=== PATIENT | male | born 1930 | race Caucasian/White ===

== ENCOUNTER 2016-12-22 16:03 | Inpatient (IN) | payer OTHER ==
[~2016-12-22] VITALS: Ht 165.1 cm; Wt 60.2 kg
[~2016-12-22 16:03] MED LIST: AMLODIPINE BESY10 MG PO; AMOX TR-K CLV1 EAC4 PO; ASPIRIN81 M2 PO; AUGMENTIN875 MG PO; CALCIUM 500 MG1 EACH PO; CENTRUM SILVER1 EAC1 PO; COUMADIN1 MG PO; COUMADIN2.5 MG PO; DOCUSATE SODIU100 MG PO; FISH OIL300 MG PO; FLOMAX0.4 MG PO; LEVETIRACETAM500 MG PO; LIPITOR40 MG PO; LOVENOX60 MG/0.6 SC
[2016-12-22 16:31] LABS: EOSINOPHIL (%) 7.6 % (0-5); EOSINOPHIL COUNT 0.5 K/uL (0-0.3); HEMATOCRIT 28.3 % (38.0-50.0); IMMATURE GRANULOCYTE (%) 0.1 % (0.0-0.7); INSTRUMENT ABS NEUTROPHIL CT 3.7 K/uL; LYMPHOCYTE COUNT 1.8 K/uL (1.0-2.8); MCHC 34.6 G/DL (30.0-36.0); MCV 101.1 FL (86-99); MONOCYTE (%) 10.7 % (3-12); MONOCYTE COUNT 0.7 K/uL (0-0.8); NEUTROPHIL (%) 54.7 % (45-76); NEUTROPHIL COUNT 3.7 K/uL (1.8-6.4); PLATELET COUNT 300 K/uL (156-360); RBC DIS.WIDTH-CV 12.4 % (11.8-14.6); RBC DIS.WIDTH-SD 46.1 % (39-53); WHITE BLOOD COUNT 6.8 K/uL (4.1-10.2)
[2016-12-22 16:40] LABS: CHLORIDE 107 mEq/L (99-109); POTASSIUM 4.9 mEq/L (3.7-5.4); SODIUM 140 mEq/L (136-147)
[2016-12-22 16:42] LABS: GLUCOSE 113 mg/dL (70-99)
[2016-12-22 16:44] LABS: ANION GAP 9 MEQ/L (2-14); TOTAL BILIRUBIN 0.3 mg/dL (0.0-1.0)
[2016-12-22 16:46] LABS: ALKALINE PHOSPHATASE 81 IU/L (3-129); GFR ESTIMATE (CALCULATED) 44 mL/min/
[2016-12-22 16:47] LABS: UREA NITROGEN (BUN) 30 mg/dL (9-23)
[2016-12-22 16:49] LABS: LIPASE 990 U/L (1.0-51.0)
[2016-12-22 17:42] LABS: ADD MIUA? NO; BILIRUBIN NEGATIVE; BLOOD NEGATIVE; COLOR YELLOW ((YELLOW)); GLUCOSE (STRIP) NEGATIVE; KETONES NEGATIVE; LEUKOCYTES NEGATIVE; NITRITE NEGATIVE; PROTEIN (STRIP) 30; UCUL ADDED? NO; UROBILINOGEN 0.2 MG/DL (0.2-1.0)
[2016-12-22] MEDS ORDERED: ZYRTEC10 M3 PO (18:29)
[2016-12-22] MEDS ORDERED: NORVASC10 MG PO (18:30)
[2016-12-22 23:04] VITALS: BP 133/60
[2016-12-23 01:45] LABS: C-REACTIVE PROTEIN 4.9 MG/L (0-10); TRIGLYCERIDES 59 MG/DL (Normal: <150)
[2016-12-23 07:08] LABS: BASOPHIL COUNT 0.1 K/uL (0-0.1); EOSINOPHIL (%) 7.1 % (0-5); EOSINOPHIL COUNT 0.4 K/uL (0-0.3); HEMATOCRIT 30.8 % (38.0-50.0); IMMATURE GRANULOCYTE (%) 0.3 % (0.0-0.7); INSTRUMENT ABS NEUTROPHIL CT 3.5 K/uL; LYMPHOCYTE COUNT 1.2 K/uL (1.0-2.8); MCH 33.8 PG (29.0-34.0); MCHC 33.1 G/DL (30.0-36.0); MEAN PLAT.VOLUME 10.1 uM^3 (9.0-12.4); MONOCYTE (%) 10.1 % (3-12); MONOCYTE COUNT 0.6 K/uL (0-0.8); NEUTROPHIL (%) 60.9 % (45-76); NEUTROPHIL COUNT 3.5 K/uL (1.8-6.4); PLATELET COUNT 243 K/uL (156-360); RBC DIS.WIDTH-CV 12.7 % (11.8-14.6); RBC DIS.WIDTH-SD 47.1 % (39-53); RED BLOOD COUNT 3.02 M/uL (4.00-5.50); WHITE BLOOD COUNT 5.8 K/uL (4.1-10.2)
[2016-12-23 07:23] VITALS: BP 105/61
[2016-12-23 07:28] LABS: ALKALINE PHOSPHATASE 69 IU/L (3-129); ANION GAP 8 MEQ/L (2-14); CHLORIDE 108 MEQ/L (99-109); GFR ESTIMATE (CALCULATED) 56 mL/min/; GLUCOSE 107 mg/dL (70-99); LIPASE 25 U/L (1.0-51.0); POTASSIUM 4.6 MEQ/L (3.7-5.4); SAMPLE HEMOLYSIS CHECK 0; SAMPLE ICTERIC CHECK 0; SAMPLE LIPEMIA CHECK 0; SODIUM 141 MEQ/L (136-147); TOTAL BILIRUBIN 0.5 MG/DL (0.0-1.0); UREA NITROGEN (BUN) 24 mg/dL (9-23)
[2016-12-23 15:44] VITALS: BP 136/81
[2016-12-24 02:35] VITALS: BP 144/64
[2016-12-24 08:02] VITALS: BP 127/60
[2016-12-24 09:37] LABS: HEMATOCRIT 34.3 % (38.0-50.0); MCH 34.4 PG (29.0-34.0); MCHC 33.8 G/DL (30.0-36.0); MCV 101.8 FL (86-99); MEAN PLAT.VOLUME 10.1 uM^3 (9.0-12.4); PLATELET COUNT 249 K/uL (156-360); RBC DIS.WIDTH-CV 12.7 % (11.8-14.6); RED BLOOD COUNT 3.37 M/uL (4.00-5.50); WHITE BLOOD COUNT 7.4 K/uL (4.1-10.2)
[2016-12-24 10:09] LABS: ALKALINE PHOSPHATASE 80 IU/L (3-129); ANION GAP 9 MEQ/L (2-14); CHLORIDE 108 MEQ/L (99-109); GFR ESTIMATE (CALCULATED) 51 mL/min/; GLUCOSE 119 mg/dL (70-99); LIPASE 17 U/L (1.0-51.0); POTASSIUM 4.5 MEQ/L (3.7-5.4); SAMPLE HEMOLYSIS CHECK 0; SAMPLE ICTERIC CHECK 0; SAMPLE LIPEMIA CHECK 0; SODIUM 143 MEQ/L (136-147); TOTAL BILIRUBIN 0.6 MG/DL (0.0-1.0); UREA NITROGEN (BUN) 23 mg/dL (9-23)
[2016-12-24 15:57] VITALS: BP 179/99
[2016-12-25 00:39] VITALS: BP 147/77
[2016-12-25 07:13] LABS: ALKALINE PHOSPHATASE 72 IU/L (3-129); ANION GAP 13 MEQ/L (2-14); CHLORIDE 107 MEQ/L (99-109); GFR ESTIMATE (CALCULATED) 47 mL/min/; GLUCOSE 122 mg/dL (70-99); POTASSIUM 4.1 MEQ/L (3.7-5.4); SAMPLE HEMOLYSIS CHECK 0; SAMPLE ICTERIC CHECK 0; SAMPLE LIPEMIA CHECK 0; SODIUM 144 MEQ/L (136-147); TOTAL BILIRUBIN 0.7 MG/DL (0.0-1.0); UREA NITROGEN (BUN) 24 mg/dL (9-23)
[2016-12-25 07:34] VITALS: BP 150/79
[2016-12-25 07:47] LABS: HEMATOCRIT 36.7 % (38.0-50.0); MCH 33.4 PG (29.0-34.0); MCHC 32.7 G/DL (30.0-36.0); MCV 102.2 FL (86-99); MEAN PLAT.VOLUME 10.5 uM^3 (9.0-12.4); PLATELET COUNT 269 K/uL (156-360); RBC DIS.WIDTH-CV 12.4 % (11.8-14.6); RBC DIS.WIDTH-SD 46.5 % (39-53); RED BLOOD COUNT 3.59 M/uL (4.00-5.50); WHITE BLOOD COUNT 7.5 K/uL (4.1-10.2)
[2016-12-25 14:50] VITALS: BP 135/79
[2016-12-25 23:43] VITALS: BP 143/86
[2016-12-26 06:38] LABS: BASOPHIL COUNT 0.1 K/uL (0-0.1); EOSINOPHIL (%) 5.9 % (0-5); EOSINOPHIL COUNT 0.5 K/uL (0-0.3); HEMATOCRIT 35.8 % (38.0-50.0); IMMATURE GRANULOCYTE (%) 0.3 % (0.0-0.7); INSTRUMENT ABS NEUTROPHIL CT 4.9 K/uL; LYMPHOCYTE COUNT 1.7 K/uL (1.0-2.8); MCH 33.6 PG (29.0-34.0); MCHC 32.1 G/DL (30.0-36.0); MCV 104.7 FL (86-99); MEAN PLAT.VOLUME 10.8 uM^3 (9.0-12.4); MONOCYTE COUNT 0.8 K/uL (0-0.8); NEUTROPHIL (%) 61.6 % (45-76); NEUTROPHIL COUNT 4.9 K/uL (1.8-6.4); PLATELET COUNT 276 K/uL (156-360); RBC DIS.WIDTH-CV 12.9 % (11.8-14.6); RBC DIS.WIDTH-SD 49.4 % (39-53); RED BLOOD COUNT 3.42 M/uL (4.00-5.50)
[2016-12-26 07:26] LABS: ALKALINE PHOSPHATASE 74 IU/L (3-129); ANION GAP 11 MEQ/L (2-14); CHLORIDE 110 MEQ/L (99-109); GFR ESTIMATE (CALCULATED) 44 mL/min/; GLUCOSE 110 mg/dL (70-99); LIPASE 24 U/L (1.0-51.0); SAMPLE HEMOLYSIS CHECK 0; SAMPLE ICTERIC CHECK 0; SAMPLE LIPEMIA CHECK 0; SODIUM 147 MEQ/L (136-147); TOTAL BILIRUBIN 0.6 MG/DL (0.0-1.0); UREA NITROGEN (BUN) 29 mg/dL (9-23)
[2016-12-26 07:54] VITALS: BP 140/62
[2016-12-26 15:49] VITALS: BP 148/82
[2016-12-26 22:49] VITALS: BP 138/82
[2016-12-27 06:42] LABS: ANION GAP 10 MEQ/L (2-14); CHLORIDE 108 MEQ/L (99-109); GFR ESTIMATE (CALCULATED) 44 mL/min/; GLUCOSE 122 mg/dL (70-99); POTASSIUM 3.7 MEQ/L (3.7-5.4); SAMPLE HEMOLYSIS CHECK 0; SAMPLE ICTERIC CHECK 0; SAMPLE LIPEMIA CHECK 0; SODIUM 143 MEQ/L (136-147); UREA NITROGEN (BUN) 26 mg/dL (9-23)
[2016-12-27 06:50] VITALS: BP 116/59
[2016-12-27 15:37] VITALS: BP 123/67
[2016-12-27 23:35] VITALS: BP 129/69
[2016-12-28 07:06] VITALS: BP 139/63
[2016-12-28] MEDS ORDERED: ZIPRASIDONE HCL20 MG PO (14:01)
== END 2016-12-28 16:10 | DRG 438 ==
LOC: EME → EDBD 16:03 → EME 16:03 → 5EAST 20:20 → EDOF 20:20 → 5EAST 22:50
PROVIDERS: Emergency Medicine; Hospitalist; Internal Medicine; Internal Medicine Gastroenterology
DX: K85.90 Acute pancreatitis without necrosis or infection, unspecified (principal); K83.1 Obstruction of bile duct; G93.40 Encephalopathy, unspecified; N17.9 Acute kidney failure, unspecified; E86.0 Dehydration; K83.8 Other specified diseases of biliary tract; I12.9 Hypertensive chronic kidney disease with stage 1 through stage 4 chronic kidney disease, or unspecified chronic kidney disease; N18.9 Chronic kidney disease, unspecified; D64.9 Anemia, unspecified; Z66 Do not resuscitate; Z51.5 Encounter for palliative care; Q63.1 Lobulated, fused and horseshoe kidney; Z23 Encounter for immunization; Z85.038 Personal history of other malignant neoplasm of large intestine; Z87.891 Personal history of nicotine dependence; Z86.718 Personal history of other venous thrombosis and embolism; I69.322 Dysarthria following cerebral infarction
CPT/HCPCS: 71010; 74176; 74181; 76705; 80048; 80053; 81003; 83605; 83690; 84478; 85025; 85027; 86140; 92610 GN; 99281; 99285; C9113; G0008; J1630; J1644; J2270; J3010; J7030; J7120

== ENCOUNTER 2017-02-01 15:01 | Inpatient (IN) | payer OTHER ==
[~2017-02-01] VITALS: Ht 167.6 cm; Wt 56.0 kg
[~2017-02-01 15:01] MED LIST changes: +NORVASC10 MG PO; +ZIPRASIDONE HCL20 MG PO; +ZYRTEC10 M3 PO
[2017-02-01 15:42] LABS: EOSINOPHIL (%) 0.5 % (0-5); HEMATOCRIT 32.1 % (38.0-50.0); IMMATURE GRANULOCYTE (%) 0.3 % (0.0-0.7); LYMPHOCYTE COUNT 0.5 K/uL (1.0-2.8); MCH 34.1 PG (29.0-34.0); MCHC 33.3 G/DL (30.0-36.0); MCV 102.2 FL (86-99); MEAN PLAT.VOLUME 9.8 uM^3 (9.0-12.4); MONOCYTE (%) 10.5 % (3-12); MONOCYTE COUNT 0.8 K/uL (0-0.8); NEUTROPHIL (%) 81.9 % (45-76); PLATELET COUNT 216 K/uL (156-360); RBC DIS.WIDTH-CV 13.1 % (11.8-14.6); RBC DIS.WIDTH-SD 49.3 % (39-53); RED BLOOD COUNT 3.14 M/uL (4.00-5.50); WHITE BLOOD COUNT 7.3 K/uL (4.1-10.2)
[2017-02-01 15:57] LABS: CHLORIDE 106 mEq/L (99-109); POTASSIUM 4.5 mEq/L (3.7-5.4); SODIUM 140 mEq/L (136-147)
[2017-02-01 15:59] LABS: GLUCOSE 154 mg/dL (70-99)
[2017-02-01 16:00] LABS: ANION GAP 10 MEQ/L (2-14)
[2017-02-01 16:01] LABS: TOTAL BILIRUBIN 0.5 mg/dL (0.0-1.0)
[2017-02-01 16:02] LABS: ALKALINE PHOSPHATASE 67 IU/L (3-129)
[2017-02-01 16:03] LABS: GFR ESTIMATE (CALCULATED) 41 mL/min/
[2017-02-01 16:04] LABS: DIRECT BILIRUBIN 0.2 mg/dL (0.0-0.3); UREA NITROGEN (BUN) 25 mg/dL (9-23)
[2017-02-01 16:07] LABS: INFLUENZA A VIRAL ANTIGEN POSITIVE; INFLUENZA B VIRAL ANTIGEN NEGATIVE
[2017-02-01 16:47] LABS: ADD MIUA? YES; BILIRUBIN NEGATIVE; BLOOD SMALL; COLOR YELLOW ((YELLOW)); GLUCOSE (STRIP) NEGATIVE; KETONES NEGATIVE; LEUKOCYTES NEGATIVE; NITRITE NEGATIVE; PROTEIN (STRIP) 100; SPECIFIC GRAVITY 1.017 (1.000-1.030); UROBILINOGEN 0.2 MG/DL (0.2-1.0)
[2017-02-01 17:09] LABS: BACTERIA RARE /HPF; EPITHELIAL CELLS RARE /HPF; MUCUS TRACE /LPF; UCUL ADDED? NO; WHITE BLOOD CELLS 0-5 /HPF (0-5)
[2017-02-01] MEDS ORDERED: LIPITOR10 MG PO (18:40)
[2017-02-01] MEDS ORDERED: CAL MAG ZINC +1 EACH PO (18:41)
[2017-02-01] MEDS ORDERED: AMOXICILLIN875 MG PO (18:42)
[2017-02-01] MEDS ORDERED: ROBITUSSIN DM118 ML PO (18:43)
[2017-02-01] MEDS ORDERED: FISH OIL 1,0001 EAC7 PO (18:43)
[2017-02-01 23:13] VITALS: BP 142/68
[2017-02-02 04:00] VITALS: BP 140/58
[2017-02-02 06:50] LABS: EOSINOPHIL (%) 0.6 % (0-5); HEMATOCRIT 31.1 % (38.0-50.0); IMMATURE GRANULOCYTE (%) 0.4 % (0.0-0.7); INSTRUMENT ABS NEUTROPHIL CT 5.6 K/uL; LYMPHOCYTE COUNT 0.6 K/uL (1.0-2.8); MCH 34.6 PG (29.0-34.0); MCHC 33.4 G/DL (30.0-36.0); MCV 103.3 FL (86-99); MEAN PLAT.VOLUME 10.3 uM^3 (9.0-12.4); MONOCYTE (%) 9.8 % (3-12); MONOCYTE COUNT 0.7 K/uL (0-0.8); NEUTROPHIL (%) 80.7 % (45-76); NEUTROPHIL COUNT 5.6 K/uL (1.8-6.4); PLATELET COUNT 197 K/uL (156-360); RBC DIS.WIDTH-SD 48.8 % (39-53); RED BLOOD COUNT 3.01 M/uL (4.00-5.50); WHITE BLOOD COUNT 6.9 K/uL (4.1-10.2)
[2017-02-02 07:10] LABS: ALKALINE PHOSPHATASE 53 IU/L (3-129); ANION GAP 6 MEQ/L (2-14); CHLORIDE 103 MEQ/L (99-109); GFR ESTIMATE (CALCULATED) 56 mL/min/; POTASSIUM 4.1 MEQ/L (3.7-5.4); SAMPLE HEMOLYSIS CHECK 0; SAMPLE ICTERIC CHECK 0; SAMPLE LIPEMIA CHECK 0; SODIUM 138 MEQ/L (136-147); TOTAL BILIRUBIN 0.5 MG/DL (0.0-1.0); UREA NITROGEN (BUN) 21 mg/dL (9-23)
[2017-02-02 07:14] LABS: GLUCOSE 114 mg/dL (70-99)
[2017-02-02 07:31] VITALS: BP 132/65
[2017-02-02 11:16] VITALS: BP 130/62
[2017-02-02 15:26] VITALS: BP 117/53
[2017-02-02 20:00] VITALS: BP 152/76
[2017-02-02 23:42] VITALS: BP 134/65
[2017-02-03 04:00] VITALS: BP 134/65
[2017-02-03 06:56] LABS: EOSINOPHIL COUNT 0.1 K/uL (0-0.3); HEMATOCRIT 28.7 % (38.0-50.0); IMMATURE GRANULOCYTE (%) 0.2 % (0.0-0.7); INSTRUMENT ABS NEUTROPHIL CT 3.9 K/uL; LYMPHOCYTE COUNT 0.8 K/uL (1.0-2.8); MCH 33.9 PG (29.0-34.0); MCHC 33.1 G/DL (30.0-36.0); MCV 102.5 FL (86-99); MEAN PLAT.VOLUME 10.8 uM^3 (9.0-12.4); MONOCYTE (%) 12.5 % (3-12); MONOCYTE COUNT 0.7 K/uL (0-0.8); NEUTROPHIL (%) 71.5 % (45-76); NEUTROPHIL COUNT 3.9 K/uL (1.8-6.4); PLATELET COUNT 185 K/uL (156-360); RBC DIS.WIDTH-CV 12.8 % (11.8-14.6); RBC DIS.WIDTH-SD 48.3 % (39-53); WHITE BLOOD COUNT 5.5 K/uL (4.1-10.2)
[2017-02-03 08:43] LABS: CHLORIDE 106 mEq/L (99-109); SODIUM 140 mEq/L (136-147)
[2017-02-03 08:45] LABS: GLUCOSE 97 mg/dL (70-99)
[2017-02-03 08:47] VITALS: BP 136/80
[2017-02-03 08:47] LABS: ANION GAP 9 MEQ/L (2-14)
[2017-02-03 08:49] LABS: GFR ESTIMATE (CALCULATED) > 59 mL/min/
[2017-02-03 08:50] LABS: UREA NITROGEN (BUN) 22 mg/dL (9-23)
[2017-02-03 11:40] VITALS: BP 129/71
[2017-02-03 16:33] VITALS: BP 132/65
[2017-02-04 08:56] VITALS: BP 134/67
[2017-02-04 11:05] LABS: EOSINOPHIL (%) 5.5 % (0-5); EOSINOPHIL COUNT 0.3 K/uL (0-0.3); HEMATOCRIT 28.2 % (38.0-50.0); IMMATURE GRANULOCYTE (%) 0.2 % (0.0-0.7); INSTRUMENT ABS NEUTROPHIL CT 3.3 K/uL; LYMPHOCYTE COUNT 0.7 K/uL (1.0-2.8); MCH 34.5 PG (29.0-34.0); MCHC 33.7 G/DL (30.0-36.0); MCV 102.5 FL (86-99); MEAN PLAT.VOLUME 10.4 uM^3 (9.0-12.4); MONOCYTE (%) 10.8 % (3-12); MONOCYTE COUNT 0.5 K/uL (0-0.8); NEUTROPHIL (%) 68.2 % (45-76); NEUTROPHIL COUNT 3.3 K/uL (1.8-6.4); PLATELET COUNT 179 K/uL (156-360); RBC DIS.WIDTH-CV 12.8 % (11.8-14.6); RBC DIS.WIDTH-SD 47.4 % (39-53); RED BLOOD COUNT 2.75 M/uL (4.00-5.50); WHITE BLOOD COUNT 4.9 K/uL (4.1-10.2)
[2017-02-04 11:25] LABS: ANION GAP 8 MEQ/L (2-14); CHLORIDE 104 MEQ/L (99-109); GFR ESTIMATE (CALCULATED) 56 mL/min/; GLUCOSE 143 mg/dL (70-99); POTASSIUM 3.5 MEQ/L (3.7-5.4); SAMPLE HEMOLYSIS CHECK 0; SAMPLE ICTERIC CHECK 0; SAMPLE LIPEMIA CHECK 0; SODIUM 141 MEQ/L (136-147); UREA NITROGEN (BUN) 23 mg/dL (9-23)
[2017-02-05 06:37] LABS: EOSINOPHIL (%) 8.3 % (0-5); EOSINOPHIL COUNT 0.4 K/uL (0-0.3); HEMATOCRIT 28.2 % (38.0-50.0); IMMATURE GRANULOCYTE (%) 0.2 % (0.0-0.7); INSTRUMENT ABS NEUTROPHIL CT 2.7 K/uL; MCH 34.2 PG (29.0-34.0); MCHC 33.7 G/DL (30.0-36.0); MCV 101.4 FL (86-99); MEAN PLAT.VOLUME 10.3 uM^3 (9.0-12.4); MONOCYTE (%) 11.5 % (3-12); MONOCYTE COUNT 0.5 K/uL (0-0.8); NEUTROPHIL (%) 58.5 % (45-76); NEUTROPHIL COUNT 2.7 K/uL (1.8-6.4); PLATELET COUNT 185 K/uL (156-360); RBC DIS.WIDTH-CV 12.7 % (11.8-14.6); RBC DIS.WIDTH-SD 47.3 % (39-53); RED BLOOD COUNT 2.78 M/uL (4.00-5.50); WHITE BLOOD COUNT 4.7 K/uL (4.1-10.2)
[2017-02-05 07:06] LABS: ANION GAP 10 MEQ/L (2-14); CHLORIDE 107 MEQ/L (99-109); GFR ESTIMATE (CALCULATED) 56 mL/min/; POTASSIUM 3.7 MEQ/L (3.7-5.4); SAMPLE HEMOLYSIS CHECK 0; SAMPLE ICTERIC CHECK 0; SAMPLE LIPEMIA CHECK 0; SODIUM 144 MEQ/L (136-147); UREA NITROGEN (BUN) 24 mg/dL (9-23)
[2017-02-05 07:09] LABS: GLUCOSE 98 mg/dL (70-99)
[2017-02-06 00:14] VITALS: BP 149/72
[2017-02-06 08:04] VITALS: BP 181/77
[2017-02-06 15:34] VITALS: BP 142/72
[2017-02-07 00:35] VITALS: BP 134/77
[2017-02-07 07:30] VITALS: BP 152/80
[2017-02-07 12:05] VITALS: BP 133/71
[2017-02-07 18:00] VITALS: BP 164/70
[2017-02-07 23:07] VITALS: BP 151/83
[2017-02-08 15:56] VITALS: BP 138/66
[2017-02-08 19:33] VITALS: BP 137/66
[2017-02-09] MEDS ORDERED: PRAVASTATIN SOD40 MG PO (08:24)
[2017-02-09] MEDS ORDERED: HALOPERIDOL0.5 MG PO (08:25)
[2017-02-09] MEDS ORDERED: LOPRESSOR25 MG PO (08:25)
[2017-02-09] MEDS ORDERED: DOCUSATE SODIU100 MG PO (08:26)
== END 2017-02-09 15:07 | DRG 872 ==
LOC: EME 15:01 → 5SOUTH 19:56 → EDOF 19:56 → 5SOUTH 22:30
PROVIDERS: Emergency Medicine; Internal Medicine; Physician Assistant Medical
DX: A41.9 Sepsis, unspecified organism (principal); N18.3 Chronic kidney disease, stage 3 (moderate); N17.9 Acute kidney failure, unspecified; I12.9 Hypertensive chronic kidney disease with stage 1 through stage 4 chronic kidney disease, or unspecified chronic kidney disease; E78.5 Hyperlipidemia, unspecified; R65.20 Severe sepsis without septic shock; J10.1 Influenza due to other identified influenza virus with other respiratory manifestations; J20.9 Acute bronchitis, unspecified; F05 Delirium due to known physiological condition; I69.322 Dysarthria following cerebral infarction; Z85.038 Personal history of other malignant neoplasm of large intestine; Z87.891 Personal history of nicotine dependence; Q63.1 Lobulated, fused and horseshoe kidney; Z86.718 Personal history of other venous thrombosis and embolism; I27.2 Other secondary pulmonary hypertension; I08.3 Combined rheumatic disorders of mitral, aortic and tricuspid valves; N40.0 Benign prostatic hyperplasia without lower urinary tract symptoms; F09 Unspecified mental disorder due to known physiological condition; Z51.5 Encounter for palliative care; Z66 Do not resuscitate; I69.991 Dysphagia following unspecified cerebrovascular disease; R13.10 Dysphagia, unspecified; I69.351 Hemiplegia and hemiparesis following cerebral infarction affecting right dominant side; I69.920 Aphasia following unspecified cerebrovascular disease; F01.51 Vascular dementia, unspecified severity, with behavioral disturbance; I69.398 Other sequelae of cerebral infarction; G93.89 Other specified disorders of brain; D64.9 Anemia, unspecified; R15.9 Full incontinence of feces
CPT/HCPCS: 70450; 71010; 71250; 80048; 80053; 80076; 81003; 82948; 83605; 85025; 85027; 87040; 87070; 87205; 87502; 93005; 94640 76; 94799; 99202; 99281; 99285; J0456; J0692; J1630; J1644; J1885; J7030; J7050; J7120

== ENCOUNTER 2017-11-27 23:34 | Emergency (ER) | payer OTHER ==
[~2017-11-27] VITALS: Ht 172.7 cm; Wt 51.9 kg
[~2017-11-27 23:34] MED LIST changes: +AMOXICILLIN875 MG PO; +CAL MAG ZINC +1 EACH PO; +FISH OIL 1,0001 EAC7 PO; +HALOPERIDOL0.5 MG PO; +LIPITOR10 MG PO; +LOPRESSOR25 MG PO; +PRAVASTATIN SOD40 MG PO; +ROBITUSSIN DM118 ML PO
[2017-11-28 00:10] LABS: HEMATOCRIT 32.2 % (38.0-50.0); MCH 35.3 PG (29.0-34.0); MCHC 34.2 G/DL (30.0-36.0); MCV 103.2 FL (86-99); PLATELET COUNT 298 K/uL (156-360); RBC DIS.WIDTH-CV 13.2 % (11.8-14.6); RBC DIS.WIDTH-SD 50.1 % (39-53); RED BLOOD COUNT 3.12 M/uL (4.00-5.50); WHITE BLOOD COUNT 10.9 K/uL (4.1-10.2)
[2017-11-28 00:17] LABS: INTER. NORMALIZED RATIO 1.1
[2017-11-28 00:19] LABS: PTT 24.5 SEC (25-37)
[2017-11-28 00:21] LABS: CHLORIDE 105 mEq/L (99-109); POTASSIUM 4.5 mEq/L (3.7-5.4); SODIUM 140 mEq/L (136-147)
[2017-11-28 00:22] LABS: GLUCOSE 170 mg/dL (70-99)
[2017-11-28 00:26] LABS: CREATININE 1.6 mg/dL (0.6-1.3); GFR ESTIMATE (CALCULATED) 44 mL/min/ (58.99-99999)
[2017-11-28 00:27] LABS: UREA NITROGEN (BUN) 34 mg/dL (9-23)
[2017-11-28 05:42] VITALS: BP 129/80
== END 2017-11-28 05:42 ==
LOC: EME → EDBD 23:34 → EME 11-28 05:42
PROVIDERS: Emergency Medicine
DX: S01.01XA Laceration without foreign body of scalp, initial encounter (principal); W06.XXXA Fall from bed, initial encounter; Y92.122 Bedroom in nursing home as the place of occurrence of the external cause; Z23 Encounter for immunization; I10 Essential (primary) hypertension; E78.5 Hyperlipidemia, unspecified; F03.90 Unspecified dementia, unspecified severity, without behavioral disturbance, psychotic disturbance, mood disturbance, and anxiety; Z86.73 Personal history of transient ischemic attack (TIA), and cerebral infarction without residual deficits; Z87.891 Personal history of nicotine dependence; Z79.82 Long term (current) use of aspirin
CPT/HCPCS: 70450; 80048; 85027; 85610; 85730; 99281; 99285; J1630; J2060